=== PATIENT | female | born 1940 | race Caucasian/White ===

== ENCOUNTER 2017-03-28 09:37 | Inpatient (IN) | payer MEDICARE, OTHER ==
[~2017-03-28] VITALS: Ht 165.1 cm; Wt 70.0 kg
[~2017-03-28 09:37] MED LIST: ACET650S21 PO; DILT120T4 PO; FENO145T13 PO; FERR143T PO; FLEC50TA25 PO; HYDR20TA22 PO; LEVO75TA5 PO; LOSA100T6 PO; METO50TA11 PO; OMEP-110 PO
[2017-03-28] MEDS ORDERED: SODIUM CHLORIDE 0.9% 1,000ML IVBOLUS ONE (10:00)
[2017-03-28] MEDS ORDERED: SODIUM CHLORIDE FLUSH 10ML SYR IVF ONE (10:00)
[2017-03-28 10:21] LABS: ASPARTATE AMINO TRANSFERASE 15 U/L (15-37); BLOOD UREA NITROGEN 13 mg/dL (7-18)
[2017-03-28 10:35] LABS: ANISOCYTOSIS 1+; MICROCYTOSIS 1+; OVALOCYTES 2+; POLYCHROMASIA 1+
[2017-03-28 10:36] LABS: POIKILOCYTOSIS 1+
[2017-03-28 10:37] LABS: HYPOCHROMIA 1+
[2017-03-28] MEDS ORDERED: ENOXAPARIN 80 MG/0.8 ML SQ ONE (11:30)
[2017-03-28] MEDS ORDERED: POTASSIUM CHLORIDE 40 MEQ in SODIUM CHLORIDE 0.9% 500 ML IV ONE (11:30)
[2017-03-28] MEDS ORDERED: NS + 40MEQ KCL 1,000 ML IV ONE (11:59)
[2017-03-28] MEDS ORDERED: POTASSIUM CHLORIDE 30 MEQ in SODIUM CHLORIDE 0.9% 1,000 ML IV SCH (12:30)
[2017-03-28] MEDS ORDERED: LIDOCAINE 1%, 20ML ONE (12:32)
[2017-03-28] MEDS ORDERED: ONDANSETRON 2MG/ML, 2ML IVPush PRN (13:00)
[2017-03-28] MEDS ORDERED: ONDANSETRON ODT 4 MG PO PRN (13:00)
[2017-03-28] MEDS ORDERED: FENTANYL PF 100 MCG/2ML ONE (13:02)
[2017-03-28] MEDS ORDERED: VISIPAQUE 270 MG/ML, 50ML BOTTLE ONE (13:59)
[2017-03-28 14:10] VITALS: BP 91/53
[2017-03-28 14:21] LABS: BLOOD UREA NITROGEN 13 mg/dL (7-18)
[2017-03-28] MEDS: POTASSIUM CHLORIDE 30 MEQ in SODIUM CHLORIDE 0.45% 1,000 ML IV SCH (14:40)
[2017-03-28 18:46] VITALS: BP 104/56
[2017-03-28] MEDS: HYDROCORTISONE 20 MG TABLET PO SCH (21:58)
[2017-03-29] MEDS ORDERED: GOLYTELY 4,000ML ORAL.SOL ONE (00:37)
[2017-03-29 02:31] VITALS: BP 110/64
[2017-03-29] MEDS ORDERED: GOLYTELY 4,000ML ORAL.SOL PO SCH (03:00)
[2017-03-29] MEDS: POTASSIUM CHLORIDE 30 MEQ in SODIUM CHLORIDE 0.45% 1,000 ML IV SCH (04:16)
[2017-03-29 07:40] VITALS: BP 124/74
[2017-03-29] MEDS: FLECAINIDE 50MG TABLET PO SCH (08:06)
[2017-03-29] MEDS: OMEPRAZOLE 20 MG CAPSULE.DR PO SCH (08:06)
[2017-03-29] MEDS: FENOFIBRATE 145 MG TABLET PO SCH (08:06)
[2017-03-29] MEDS: METOPROLOL SUCCINATE 25 MG TAB.ER.24H PO SCH (08:07)
[2017-03-29] MEDS: DILTIAZEM 120 MG CAP.ER.24H PO SCH (08:18)
[2017-03-29] MEDS: HYDROCORTISONE 20 MG TABLET PO SCH ×2 (08:18→19:47)
[2017-03-29] MEDS: LEVOTHYROXINE 75 MCG TABLET PO SCH (08:19)
[2017-03-29] MEDS ORDERED: FENTANYL PF 100 MCG/2ML ONE ×2 (10:11→11:38)
[2017-03-29] MEDS ORDERED: MIDAZOLAM 1 MG/ML, 5ML ONE ×2 (10:11→11:38)
[2017-03-29 12:51] VITALS: BP 113/56
[2017-03-29] MEDS ORDERED: MAGNESIUM SULFATE PMX 2GM/50ML 50 ML IV ONE (13:00)
[2017-03-29 14:06] VITALS: BP 120/55
[2017-03-29] MEDS ORDERED: ACETAMINOPHEN 325 MG TABLET ONE (14:28)
[2017-03-29] MEDS: ACETAMINOPHEN 650 MG/20.3 ML UDC PO PRN (14:30)
[2017-03-29 18:41] VITALS: BP 120/63
[2017-03-29] MEDS: morphine SULFATE 10 MG/ML, 1ML IVPush PRN ×2 (19:47→20:13)
[2017-03-30] VITALS (11 sets, daily range): BP systolic 105–131; BP diastolic 61–74
[2017-03-30] MEDS: POTASSIUM CHLORIDE 30 MEQ in SODIUM CHLORIDE 0.45% 1,000 ML IV SCH ×2 (00:31→20:11)
[2017-03-30 05:08] LABS: BLOOD UREA NITROGEN 11 mg/dL (7-18)
[2017-03-30] MEDS: HYDROCORTISONE 20 MG TABLET PO SCH ×2 (07:37→20:00)
[2017-03-30] MEDS: DILTIAZEM 120 MG CAP.ER.24H PO SCH (07:37)
[2017-03-30] MEDS: LEVOTHYROXINE 75 MCG TABLET PO SCH (07:37)
[2017-03-30] MEDS: FENOFIBRATE 145 MG TABLET PO SCH (07:37)
[2017-03-30] MEDS: FLECAINIDE 50MG TABLET PO SCH (07:37)
[2017-03-30] MEDS: METOPROLOL SUCCINATE 25 MG TAB.ER.24H PO SCH (07:37)
[2017-03-30] MEDS: OMEPRAZOLE 20 MG CAPSULE.DR PO SCH (07:37)
[2017-03-30] MEDS ORDERED: ACETAMINOPHEN 325 MG TABLET PO ONE (11:00)
[2017-03-30] MEDS ORDERED: DIPHENHYDRAMINE 50 MG/ML, 1ML IVPush ONE (11:00)
[2017-03-30 12:56] LABS: TOTAL IRON BINDING CAPACITY 366 mcg/dL (250-450)
[2017-03-30 20:34] LABS: OCCBLD OBC PASS
[2017-03-31 02:30] VITALS: BP 138/70
[2017-03-31 05:49] LABS: ASPARTATE AMINO TRANSFERASE 10 U/L (15-37); BLOOD UREA NITROGEN 9 mg/dL (7-18)
[2017-03-31 05:56] LABS: TOTAL IRON BINDING CAPACITY 330 mcg/dL (250-450)
[2017-03-31 08:15] VITALS: BP 169/80
[2017-03-31] MEDS: LEVOTHYROXINE 75 MCG TABLET PO SCH (09:59)
[2017-03-31] MEDS: FLECAINIDE 50MG TABLET PO SCH (09:59)
[2017-03-31] MEDS: OMEPRAZOLE 20 MG CAPSULE.DR PO SCH (09:59)
[2017-03-31] MEDS: METOPROLOL SUCCINATE 25 MG TAB.ER.24H PO SCH (09:59)
[2017-03-31] MEDS: FENOFIBRATE 145 MG TABLET PO SCH (09:59)
[2017-03-31] MEDS: HYDROCORTISONE 20 MG TABLET PO SCH ×2 (10:00→22:28)
[2017-03-31] MEDS: DILTIAZEM 120 MG CAP.ER.24H PO SCH (10:00)
[2017-03-31] MEDS: POTASSIUM CHLORIDE 30 MEQ in SODIUM CHLORIDE 0.45% 1,000 ML IV SCH (10:11)
[2017-03-31] MEDS ORDERED: ACETAMINOPHEN 325 MG TABLET ONE (11:50)
[2017-03-31] MEDS: ACETAMINOPHEN 650 MG/20.3 ML UDC PO PRN (11:53)
[2017-03-31 14:05] VITALS: BP 120/61
[2017-03-31 20:45] VITALS: BP 137/74
[2017-04-01] MEDS: POTASSIUM CHLORIDE 30 MEQ in SODIUM CHLORIDE 0.45% 1,000 ML IV SCH (01:25)
[2017-04-01 04:38] VITALS: BP 133/78
[2017-04-01 06:08] LABS: BLOOD UREA NITROGEN 10 mg/dL (7-18)
[2017-04-01 06:40] VITALS: BP 151/79
[2017-04-01] MEDS: HYDROCORTISONE 20 MG TABLET PO SCH (09:23)
[2017-04-01] MEDS: METOPROLOL SUCCINATE 25 MG TAB.ER.24H PO SCH (09:23)
[2017-04-01] MEDS: FENOFIBRATE 145 MG TABLET PO SCH (09:23)
[2017-04-01] MEDS: OMEPRAZOLE 20 MG CAPSULE.DR PO SCH (09:24)
[2017-04-01] MEDS: DILTIAZEM 120 MG CAP.ER.24H PO SCH (09:24)
[2017-04-01] MEDS: LEVOTHYROXINE 75 MCG TABLET PO SCH (09:24)
[2017-04-01] MEDS: FLECAINIDE 50MG TABLET PO SCH (11:20)
[2017-04-01 12:35] VITALS: BP 126/75
[2017-04-01] MEDS ORDERED: APIX5TAB PO (16:04)
[2017-04-01] MEDS ORDERED: APIXABAN 5 MG TABLET PO SCH (21:00)
[2017-04-02] MEDS ORDERED: LEVOTHYROXINE 75 MCG TABLET PO SCH (06:00)
[2017-04-05 14:07] LABS: HGB A 97.9 % (94.0-98.0); HGB A2 2.1 % (0.7-3.1)
== END 2017-04-01 17:00 | disposition home or self-care (01) | DRG 356 ==
LOC: ED 10:40 → EDIP 11:27 → 4WST 13:52 → 4NOR 03-29 06:13 → 4WST 03-29 06:13
PROVIDERS: ATTEND Internal Medicine
PROC: 06H03DZ Insertion of Intraluminal Device into Inferior Vena Cava, Percutaneous Approach (ICD-10-PCS; 2017-03-28)
PROC: 0DBK8ZZ Excision of Ascending Colon, Via Natural or Artificial Opening Endoscopic (ICD-10-PCS; 2017-03-29)
PROC: 0DBN8ZZ Excision of Sigmoid Colon, Via Natural or Artificial Opening Endoscopic (ICD-10-PCS; 2017-03-29)
PROC: 30233N1 Transfusion of Nonautologous Red Blood Cells into Peripheral Vein, Percutaneous Approach (ICD-10-PCS; 2017-03-29)
PROC: 0DB68ZX Excision of Stomach, Via Natural or Artificial Opening Endoscopic, Diagnostic (ICD-10-PCS; 2017-03-29)
PROC: 0DB98ZX Excision of Duodenum, Via Natural or Artificial Opening Endoscopic, Diagnostic (ICD-10-PCS; principal; 2017-03-29 11:30)
DX: K31.7 Polyp of stomach and duodenum (principal); N17.0 Acute kidney failure with tubular necrosis; I82.412 Acute embolism and thrombosis of left femoral vein; E27.40 Unspecified adrenocortical insufficiency; D62 Acute posthemorrhagic anemia; N17.9 Acute kidney failure, unspecified; D68.69 Other thrombophilia; D12.2 Benign neoplasm of ascending colon; D72.829 Elevated white blood cell count, unspecified; E03.9 Hypothyroidism, unspecified; E78.5 Hyperlipidemia, unspecified; E86.0 Dehydration; E87.6 Hypokalemia; K64.4 Residual hemorrhoidal skin tags; I12.9 Hypertensive chronic kidney disease with stage 1 through stage 4 chronic kidney disease, or unspecified chronic kidney disease; I48.0 Paroxysmal atrial fibrillation; J45.909 Unspecified asthma, uncomplicated; K21.9 Gastro-esophageal reflux disease without esophagitis; K44.9 Diaphragmatic hernia without obstruction or gangrene; M19.90 Unspecified osteoarthritis, unspecified site; N18.3 Chronic kidney disease, stage 3 (moderate); Z79.52 Long term (current) use of systemic steroids; Z79.01 Long term (current) use of anticoagulants; Z80.7 Family history of other malignant neoplasms of lymphoid, hematopoietic and related tissues; Z82.49 Family history of ischemic heart disease and other diseases of the circulatory system; Z87.891 Personal history of nicotine dependence; Z90.710 Acquired absence of both cervix and uterus
CPT/HCPCS: 36415; 37191; 80048; 80053; 80076; 81003; 82272; 83021; 83540; 83550; 83615; 83690; 83735; 84439; 84443; 85025; 85045; 85610; 85660; 86850; 86900; 86923; 88305; 93005; 96361; 96374; 99152; 99153; J2250; J2405; J3010; J3480; J3490; Q9966; C1769; C1880; J1200; J2270; J3475; J7030; J7040; P9016

== ENCOUNTER 2017-05-20 11:02 | Day surgery (SDC) | payer MEDICARE, OTHER ==
[~2017-05-20] VITALS: Ht 165.1 cm; Wt 67.9 kg
[~2017-05-20 11:02] MED LIST changes: +APIX5TAB PO
[2017-05-20 11:45] VITALS: BP 137/73
[2017-05-20] MEDS ORDERED: LACTATED RINGERS 1,000 ML IV SCH (11:48)
[2017-05-20] MEDS ORDERED: LIDOCAINE/MPF 2%-EPI 1:200K, 20 ML ONE (12:57)
[2017-05-20] MEDS ORDERED: VANCOMYCIN 1,000 MG ONE (12:57)
[2017-05-20] MEDS ORDERED: THROMBIN 5,000 UNIT VIAL TP ONE (12:57)
[2017-05-20] MEDS ORDERED: TRANEXAMIC ACID 100 MG/ML, 10ML ONE (12:57)
[2017-05-20] MEDS ORDERED: BUPIVACAINE/PF 0.5% ONE (12:57)
[2017-05-20] MEDS ORDERED: BUPIVACAINE LIPOSOME/PF INFIL ONE (12:58)
[2017-05-20] MEDS ORDERED: HYDROCORTISONE 100 MG INJ. ONE (13:14)
[2017-05-20] MEDS ORDERED: FENTANYL PF 250 MCG/5ML ONE (13:15)
[2017-05-20] MEDS ORDERED: ROCURONIUM 10 MG/ML ONE (13:20)
[2017-05-20] MEDS ORDERED: KETOROLAC 30 MG/1 ML ONE (13:20)
[2017-05-20] MEDS ORDERED: ONDANSETRON 2MG/ML, 2ML ONE (13:20)
[2017-05-20] MEDS ORDERED: PROPOFOL 10 MG/ML, 20ML ONE (13:20)
[2017-05-20] MEDS ORDERED: CEFAZOLIN 1,000 MG ONE (13:20)
[2017-05-20] MEDS ORDERED: hydrALAzine 20 MG/ML, 1ML IV PRN (14:00)
[2017-05-20] MEDS ORDERED: HYDROmorphone 1 MG/ML, 1ML IV PRN (14:00)
[2017-05-20] MEDS ORDERED: FENTANYL PF 100 MCG/2ML IV PRN (14:00)
[2017-05-20] MEDS ORDERED: LABETALOL 5MG/ML, 20ML IV PRN (14:00)
[2017-05-20] MEDS ORDERED: ONDANSETRON 2MG/ML, 2ML IVPush PRN (14:00)
[2017-05-20] MEDS ORDERED: MIDAZOLAM 1 MG/ML, 2ML IV PRN (14:00)
[2017-05-20] MEDS ORDERED: OXYcodone 5 MG/5 ML ORAL.SOL UDC PO PRN (14:00)
== END 2017-05-20 16:50 ==
LOC: OUT 11:02
PROVIDERS: ATTEND Orthopaedic Surgery Orthopaedic Surgery of the Spine
DX: M48.06 Spinal stenosis, lumbar region (principal); E03.9 Hypothyroidism, unspecified; K21.9 Gastro-esophageal reflux disease without esophagitis; D64.9 Anemia, unspecified; Z88.1 Allergy status to other antibiotic agents; Z88.0 Allergy status to penicillin; Z87.39 Personal history of other diseases of the musculoskeletal system and connective tissue; Z90.710 Acquired absence of both cervix and uterus
CPT/HCPCS: 63047; 72100; C9290; J0690; J1720; J1885; J2405; J2704; J3010; J3370; J3490; J7120

== ENCOUNTER 2017-07-01 10:08 | Day surgery (SDC) | payer MEDICARE, OTHER ==
[~2017-07-01] VITALS: Ht 165.1 cm; Wt 67.5 kg
[2017-07-01 10:41] VITALS: BP 153/82
[2017-07-01] MEDS ORDERED: SODIUM CHLORIDE 0.9% 1,000 ML IV SCH (11:00)
[2017-07-01] MEDS ORDERED: LIDOCAINE 1%, 20ML ONE (12:05)
[2017-07-01] MEDS ORDERED: MIDAZOLAM 1 MG/ML, 5ML ONE (12:22)
[2017-07-01] MEDS ORDERED: FENTANYL PF 100 MCG/2ML ONE (12:22)
[2017-07-01] MEDS ORDERED: VISIPAQUE 270 MG/ML, 50ML BOTTLE ONE (12:40)
== END 2017-07-01 16:05 ==
LOC: RAD 10:08 → OUT 16:05
PROVIDERS: ATTEND Internal Medicine
DX: Z45.09 Encounter for adjustment and management of other cardiac device (principal); E78.5 Hyperlipidemia, unspecified; I10 Essential (primary) hypertension; Z87.01 Personal history of pneumonia (recurrent); Z86.39 Personal history of other endocrine, nutritional and metabolic disease; Z87.39 Personal history of other diseases of the musculoskeletal system and connective tissue; Z98.890 Other specified postprocedural states
CPT/HCPCS: 37193; 76937; 99156; 99157; C1751; C1769; C1773; C1894; J2250; J3010; J3490; J7030; Q9966

== ENCOUNTER → 2019-04-17 | Outpatient (CLI) | payer MEDICARE, OTHER ==
[~2019-04-17] MED LIST changes: -FENO145T13 PO; +FENO145T30 PO; -HYDR20TA22 PO; +HYDR20TA23 PO; +LOSA100T14 PO; -LOSA100T6 PO; +METO-264 PO; -METO50TA11 PO
== END | disposition home or self-care (01) ==
LOC: WOUND 10:22
PROVIDERS: ATTEND Internal Medicine Infectious Disease
DX: I87.333 Chronic venous hypertension (idiopathic) with ulcer and inflammation of bilateral lower extremity (principal); L97.222 Non-pressure chronic ulcer of left calf with fat layer exposed; L97.211 Non-pressure chronic ulcer of right calf limited to breakdown of skin; L08.0 Pyoderma; M19.90 Unspecified osteoarthritis, unspecified site; I48.91 Unspecified atrial fibrillation; E78.00 Pure hypercholesterolemia, unspecified; E03.9 Hypothyroidism, unspecified; K21.9 Gastro-esophageal reflux disease without esophagitis; E78.5 Hyperlipidemia, unspecified; Z88.0 Allergy status to penicillin; Z88.2 Allergy status to sulfonamides; Z90.710 Acquired absence of both cervix and uterus; Z87.891 Personal history of nicotine dependence; Z88.1 Allergy status to other antibiotic agents
CPT/HCPCS: 97597; G0463

== ENCOUNTER → 2019-04-24 | Outpatient (CLI) | payer MEDICARE, OTHER | END | disposition home or self-care (01) | LOC: WOUND 10:22 | PROVIDERS: ATTEND Internal Medicine Infectious Disease | DX: I87.333 Chronic venous hypertension (idiopathic) with ulcer and inflammation of bilateral lower extremity (principal); L97.222 Non-pressure chronic ulcer of left calf with fat layer exposed; L97.211 Non-pressure chronic ulcer of right calf limited to breakdown of skin; L08.0 Pyoderma; M19.90 Unspecified osteoarthritis, unspecified site; I48.91 Unspecified atrial fibrillation; E78.00 Pure hypercholesterolemia, unspecified; E03.9 Hypothyroidism, unspecified; K21.9 Gastro-esophageal reflux disease without esophagitis; E78.5 Hyperlipidemia, unspecified; Z88.0 Allergy status to penicillin; Z88.2 Allergy status to sulfonamides; Z90.710 Acquired absence of both cervix and uterus; Z87.891 Personal history of nicotine dependence; Z88.1 Allergy status to other antibiotic agents | CPT/HCPCS: 97597 ==

== ENCOUNTER 2019-05-01 10:09 | Outpatient (CLI) | payer MEDICARE, OTHER | END 2019-05-01 23:59 | disposition home or self-care (01) | LOC: WOUND 10:09 | PROVIDERS: ATTEND Nurse Practitioner Family | DX: I87.333 Chronic venous hypertension (idiopathic) with ulcer and inflammation of bilateral lower extremity (principal); L97.222 Non-pressure chronic ulcer of left calf with fat layer exposed; L97.212 Non-pressure chronic ulcer of right calf with fat layer exposed; L08.0 Pyoderma; M19.90 Unspecified osteoarthritis, unspecified site; I48.91 Unspecified atrial fibrillation; E78.00 Pure hypercholesterolemia, unspecified; E03.9 Hypothyroidism, unspecified; K21.9 Gastro-esophageal reflux disease without esophagitis; E78.5 Hyperlipidemia, unspecified; Z88.0 Allergy status to penicillin; Z88.2 Allergy status to sulfonamides; Z90.710 Acquired absence of both cervix and uterus; Z87.891 Personal history of nicotine dependence; Z88.1 Allergy status to other antibiotic agents | CPT/HCPCS: 11042; 11043; 97597 ==

== ENCOUNTER 2019-05-04 12:58 | Outpatient (CLI) | payer MEDICARE, OTHER | END 2019-05-04 23:59 | disposition home or self-care (01) | LOC: WOUND 12:58 | PROVIDERS: ATTEND Family Medicine | DX: I87.333 Chronic venous hypertension (idiopathic) with ulcer and inflammation of bilateral lower extremity (principal); L97.222 Non-pressure chronic ulcer of left calf with fat layer exposed; L97.211 Non-pressure chronic ulcer of right calf limited to breakdown of skin; L08.0 Pyoderma; M19.90 Unspecified osteoarthritis, unspecified site; I48.91 Unspecified atrial fibrillation; E78.00 Pure hypercholesterolemia, unspecified; E03.9 Hypothyroidism, unspecified; K21.9 Gastro-esophageal reflux disease without esophagitis; E78.5 Hyperlipidemia, unspecified; Z88.0 Allergy status to penicillin; Z88.2 Allergy status to sulfonamides; Z90.710 Acquired absence of both cervix and uterus; Z87.891 Personal history of nicotine dependence; Z88.1 Allergy status to other antibiotic agents | CPT/HCPCS: 97605 ==

== ENCOUNTER 2019-05-07 09:27 | Outpatient (CLI) | payer MEDICARE, OTHER | END 2019-05-07 23:59 | disposition home or self-care (01) | LOC: WOUND 09:27 | PROVIDERS: ATTEND Internal Medicine | DX: I87.333 Chronic venous hypertension (idiopathic) with ulcer and inflammation of bilateral lower extremity (principal); L97.222 Non-pressure chronic ulcer of left calf with fat layer exposed; L97.211 Non-pressure chronic ulcer of right calf limited to breakdown of skin; L08.0 Pyoderma; M19.90 Unspecified osteoarthritis, unspecified site; I48.91 Unspecified atrial fibrillation; E78.00 Pure hypercholesterolemia, unspecified; E03.9 Hypothyroidism, unspecified; K21.9 Gastro-esophageal reflux disease without esophagitis; E78.5 Hyperlipidemia, unspecified; Z88.0 Allergy status to penicillin; Z88.2 Allergy status to sulfonamides; Z90.710 Acquired absence of both cervix and uterus; Z87.891 Personal history of nicotine dependence; Z88.1 Allergy status to other antibiotic agents | CPT/HCPCS: 97605 ==

== ENCOUNTER 2019-05-09 10:58 | Outpatient (CLI) | payer MEDICARE, OTHER | END 2019-05-09 23:59 | disposition home or self-care (01) | LOC: WOUND 10:58 | PROVIDERS: ATTEND Internal Medicine | DX: I87.333 Chronic venous hypertension (idiopathic) with ulcer and inflammation of bilateral lower extremity (principal); L97.222 Non-pressure chronic ulcer of left calf with fat layer exposed; L97.211 Non-pressure chronic ulcer of right calf limited to breakdown of skin; L08.0 Pyoderma; M19.90 Unspecified osteoarthritis, unspecified site; I48.91 Unspecified atrial fibrillation; E03.9 Hypothyroidism, unspecified; K21.9 Gastro-esophageal reflux disease without esophagitis; E78.5 Hyperlipidemia, unspecified; Z88.0 Allergy status to penicillin; Z88.2 Allergy status to sulfonamides; Z90.710 Acquired absence of both cervix and uterus; Z87.891 Personal history of nicotine dependence; Z88.1 Allergy status to other antibiotic agents | CPT/HCPCS: 97597 ==

== ENCOUNTER 2019-05-11 13:35 | Outpatient (CLI) | payer MEDICARE, OTHER | END 2019-05-11 23:59 | disposition home or self-care (01) | LOC: WOUND 13:35 | PROVIDERS: ATTEND Family Medicine | DX: I87.333 Chronic venous hypertension (idiopathic) with ulcer and inflammation of bilateral lower extremity (principal); L97.222 Non-pressure chronic ulcer of left calf with fat layer exposed; L97.211 Non-pressure chronic ulcer of right calf limited to breakdown of skin; M19.90 Unspecified osteoarthritis, unspecified site; L08.0 Pyoderma; I48.91 Unspecified atrial fibrillation; E03.9 Hypothyroidism, unspecified; K21.9 Gastro-esophageal reflux disease without esophagitis; E78.5 Hyperlipidemia, unspecified; Z88.0 Allergy status to penicillin; Z88.2 Allergy status to sulfonamides; Z90.710 Acquired absence of both cervix and uterus; Z87.891 Personal history of nicotine dependence; Z88.1 Allergy status to other antibiotic agents | CPT/HCPCS: G0463 ==

== ENCOUNTER 2019-05-16 12:57 | Outpatient (CLI) | payer MEDICARE, OTHER | END 2019-05-16 23:59 | disposition home or self-care (01) | LOC: WOUND 12:57 | PROVIDERS: ATTEND Internal Medicine | DX: I87.333 Chronic venous hypertension (idiopathic) with ulcer and inflammation of bilateral lower extremity (principal); L97.222 Non-pressure chronic ulcer of left calf with fat layer exposed; L97.211 Non-pressure chronic ulcer of right calf limited to breakdown of skin; M19.90 Unspecified osteoarthritis, unspecified site; L08.0 Pyoderma; I48.91 Unspecified atrial fibrillation; E03.9 Hypothyroidism, unspecified; K21.9 Gastro-esophageal reflux disease without esophagitis; E78.5 Hyperlipidemia, unspecified; Z88.0 Allergy status to penicillin; Z88.2 Allergy status to sulfonamides; Z90.710 Acquired absence of both cervix and uterus; Z87.891 Personal history of nicotine dependence; Z88.1 Allergy status to other antibiotic agents | CPT/HCPCS: 97597 ==

== ENCOUNTER 2019-05-18 12:06 | Outpatient (CLI) | payer MEDICARE, OTHER | END 2019-05-18 23:59 | disposition home or self-care (01) | LOC: CVU 12:06 | PROVIDERS: ATTEND Internal Medicine Infectious Disease | DX: L97.222 Non-pressure chronic ulcer of left calf with fat layer exposed (principal); I87.2 Venous insufficiency (chronic) (peripheral) | CPT/HCPCS: 93922; 93925; 93970 ==

== ENCOUNTER 2019-05-23 12:49 | Outpatient (CLI) | payer MEDICARE, OTHER | END 2019-05-23 23:59 | disposition home or self-care (01) | LOC: WOUND 12:49 | PROVIDERS: ATTEND Internal Medicine | DX: I87.333 Chronic venous hypertension (idiopathic) with ulcer and inflammation of bilateral lower extremity (principal); L97.222 Non-pressure chronic ulcer of left calf with fat layer exposed; L97.211 Non-pressure chronic ulcer of right calf limited to breakdown of skin; M19.90 Unspecified osteoarthritis, unspecified site; L08.0 Pyoderma; I48.91 Unspecified atrial fibrillation; E03.9 Hypothyroidism, unspecified; K21.9 Gastro-esophageal reflux disease without esophagitis; E78.5 Hyperlipidemia, unspecified; Z88.0 Allergy status to penicillin; Z88.2 Allergy status to sulfonamides; Z90.710 Acquired absence of both cervix and uterus; Z87.891 Personal history of nicotine dependence; Z88.1 Allergy status to other antibiotic agents | CPT/HCPCS: 97597 ==

== ENCOUNTER 2019-05-30 13:00 | Outpatient (CLI) | payer MEDICARE, OTHER | END 2019-05-30 23:59 | disposition home or self-care (01) | LOC: WOUND 13:00 | PROVIDERS: ATTEND Internal Medicine | DX: I87.333 Chronic venous hypertension (idiopathic) with ulcer and inflammation of bilateral lower extremity (principal); L97.222 Non-pressure chronic ulcer of left calf with fat layer exposed; L97.211 Non-pressure chronic ulcer of right calf limited to breakdown of skin; M19.90 Unspecified osteoarthritis, unspecified site; L08.0 Pyoderma; I48.91 Unspecified atrial fibrillation; E03.9 Hypothyroidism, unspecified; K21.9 Gastro-esophageal reflux disease without esophagitis; E78.5 Hyperlipidemia, unspecified; Z88.0 Allergy status to penicillin; Z88.2 Allergy status to sulfonamides; Z90.710 Acquired absence of both cervix and uterus; Z87.891 Personal history of nicotine dependence; Z88.1 Allergy status to other antibiotic agents | CPT/HCPCS: 97597 ==